=== PATIENT | female | born 1980 | race Caucasian/White ===

== ENCOUNTER 2024-07-13 09:42 | Outpatient (CLI) | payer BC, SELFPAY ==
[2024-07-13 10:21] LABS: Basophils # 0.1 K/mm3 (0-0.2); Basophils % 1.1 % (0.1-2.0); Eosinophils # 0.4 Kmm3 (0.0-0.4); Eosinophils % 4.3 % (0.1-12.0); Hemoglobin 13.2 g/dL (12.2-16.2); Lymphocytes # 1.7 K/mm3 (0.7-4.5); Lymphocytes % 20.5 % (10-50); Mean Corpuscular Hemoglobin 29.8 pg (27.0-31.2); Mean Corpuscular Volume 90.3 fl (81-99); Mean Platelet Volume 9.9 fl (7.4-10.4); Monocytes # 0.5 K/mm3 (0.1-1.0); Monocytes % 6.3 % (1.7-9.3); Neutrophils # 5.5 K/mm3 (1.8-7.8); Neutrophils % 67.7 % (37.0-80.0); Nucleated Red Blood Cells # 0 10^3/uL; Nucleated Red Blood Cells % 0 %; Platelet Count 321 K/mm3 (142-424); Red Blood Count 4.43 M/mm3 (4.20-5.40); Red Cell Distribution Width-SD 43.1 fL; White Blood Count 8.1 K/mm3 (4.8-10.8)
[2024-07-13 10:44] LABS: Erythrocyte Sedimentation Rate 13 mm/hr (0-20)
[2024-07-13 10:47] LABS: Alanine Aminotransferase 35 U/L (12-78); Albumin Level 4.3 g/dl (3.5-5.0); Albumin/Globulin Ratio 1.5 (1.1-1.8); Alkaline Phosphatase 51 U/L (38-126); Anion Gap 9.3 mEq/L (5-15); Aspartate Amino Transferase 30 U/L (14-36); Bilirubin,Total 0.4 mg/dl (0.2-1.3); Blood Urea Nitrogen 15 mg/dl (7-17); Calcium 9.3 mg/dl (8.4-10.2); Carbon Dioxide 28 mmol/L (22.0-30.0); Chloride 105 mmol/L (98-107); Estimated Glomerular Filt Rate 90 ml/min (>60); GFR (African American) 109 ML/MIN (>60); Globulin 2.8 g/dL (1.3-3.2); Glucose 91 mg/dl (74-100); Potassium 4.3 mmoL/L (3.5-5.1); Sodium 138 mmol/L (136-145); Total Protein,Serum 7.1 g/dl (6.3-8.2)
[2024-07-13 10:52] LABS: C-Reactive Protein 0.4 mg/L (0-4)
[2024-07-13 11:09] LABS: 25-OH Vitamin D, Total 74.4 ng/mL (30-100)
[2024-07-13 11:38] LABS: Vitamin B12 893 pg/mL (239-931)
[2024-07-13 12:57] LABS: Iron 116 ug/dL (37-170)
[2024-07-13 13:09] LABS: Total Iron Binding Capacity 288 ug/dL (265-497)
[2024-07-13 15:38] LABS: Ferritin 54.1 ng/ml (6.24-137)
== END 2024-07-13 23:59 | disposition home or self-care (01) ==
LOC: LAB 09:44
PROVIDERS: PCP Internal Medicine; Visit Provider Nurse Practitioner Family
DX: K50.90 Crohn's disease, unspecified, without complications (principal)
CPT/HCPCS: 36415; 80053; 82306; 82607; 82728; 83540; 83550; 85025; 85651; 86140

== ENCOUNTER 2024-09-16 07:03 | Outpatient (CLI) | payer BC, SELFPAY ==
--- OUTSIDE RECORDS SUMMARY | 2024-09-16 07:07 | XMS_ITS | Patient Health Record ---
Author Organization [facility] Group Address [address] [facility] [address] [place] [address] Care Team Providers Care Guideman Name Role Phone Teetee Mayes Unavailable [phone] Reason For Referral No Information Social History Social History Additional Details Category Social Info Options Details Miscellaneous: Sexually active: SEXUAL AC TIV: Current Problems Problem Type SNOMED Code ICD Code Onset Dates Problem Status W/U Status Risk Notes Problem Surveillance of intrauterine device contraception (692027803) Checking of intrauterine device (Z30.431) 020 Active confirmed Encounter for surveillance of intrauterine contraceptive device Problem Urine test negative (435516709) Encounter for test with result negative (Z32.02) 021 Active confirmed Urine test negative Problem Pelvic and perineal pain (124597099) Abdominal pain, suprapubic (R10.2) 020 Active confirmed Pelvic pain Problem Gynecological examination normal (12800568525547 4) Cervical smear, as part of routine gynecological examination (Z01.419) 021 Active confirmed Annual without abnormal findings Problem Insertion of intrauterine contraceptive device (13352552) Encounter for initial insertion of intrauterine contraceptive device (Z30.430) 021 Active confirmed Encounter for insertion of intrauterine contraceptive device Plan Of Treatment No Information Medical (General) History Medical History History ICD Code Anxiety Asthma Crohn's disease Hyptension IBS UTI BASAL cell Endometriosis MENSTR FLOW: Light VITAMIN D CAPSULE PROBIOTIC CAPSULE MIRENA (52 MG) 20 MCG/24HR INTRAUTERINE INTRAUTERINE DEVICE, IU DIOVAN HCT 80-12.5 MG ORAL TABLET, ORAL SINGULAIR TABLET ASACOL HD 800 MG ORAL TABLET DELAYED REL EASE, ORAL Surgical History Surgery Date(Month/Year) Tonsillectomy Dx Lap w/ uterine suspension - 2008 Colon resection x2
--- OUTSIDE RECORDS SUMMARY | 2024-09-16 07:07 | XMS_ITS | Data Portability ---
Author Organization LAYLA - Yodit abraham, CHRISS IBAPAH CLOSED Address [address] [place] [address] Care Team Providers Care Casino Runner Name Role Phone ALEXX DENNY Primary Care Provider [phone] ASHLEY VIRK Hospitality Ambassador Assessment Encounter Date Assessment Date Assessment LastModified by Organization Details LastModified Time 06/21/2024 06/21/2024 UUI is well-controll ed on solifenacin. Continue this. She has had some worsening of stress urinary incontinence. We will trial pelvic floor physical therapy. Patient would like to do this at [facility] in [place] given the location of her job we will follow-up in 3 months Will send her urine for micro and culture today and call with results [email or web address] Not available 06/23/2024 11:55:56 Plan of Treatment Reminders Order Date Submit Date Provider Last Modified By Organization Details Last Modified Time Details Appointments RECHECK 2024 11:00A M AME LOO PA-C Not available Not available Not available SINGLE PROB DAK 2024 03:40P M ARIN MATUTE MD Not available Not available Not available Lab urinalysi s panel, auto 2024 025 [email or web address] [facility], [address], [address], [place], [address], 06/21/2024 09:27:36 urinalysi s panel, auto 2023 024 [email or web address] [facility], [address], [address], [place], [address], 06/23/2023 10:55:54 Referral pelvic floor therapy referral 2024 025 [email or web address] [facility], [address], [address], [place], [address], 08/16/2024 08:37:15 Procedures None recorded. Surgeries None recorded. Imaging None recorded. Medication Orders solifenac in 10 mg tablet 2024 025 [facility], [address], [place], [address], 06/21/2024 09:41:41 Aldara 5 % topical cream packet 2024 025 [facility], [address], [place], [address], 05/18/2024 16:18:52 Kenalog 10 mg/mL suspensio n for injection 2023 024 [email or web address] [facility], [address], [place], [address], 12/24/2023 11:24:04 tretinoin 0.05 % topical cream 2023 024 [facility], [address], [place], [address], 12/24/2023 13:27:21 solifenac in 10 mg tablet 2023 024 [facility], [address], [place], [address], 06/23/2023 11:04:55 Patient TargetsNo targets recorded. Patient Instructions Encounter Date Encounter Id Patient Instructions Last Modified By Organization Details Last Modified Time 06/23/2023 [id number] See notes above and in HPI f/u in approx 1 year for recheck, sooner if needed Pt understands and agrees with care plan. No further questions or concerns at this time Not available 06/23/2023 10:59:23 06/21/2024 [id number] eating healthy foods: care instructions Not available 06/21/2024 09:27:36 See notes above and in HPI Follow-up in 3 months for recheck with PVR Return sooner if needed Pt understands and agrees with care plan. No further questions or concerns at this time [email or web address] Not available 06/23/2024 11:56:07 Reason for Referral Pelvic Floor Therapy Referra l for Female stress incontinence Referring Physician: Ame Loo, Urology, Encounter Date: 06/21/2024 Results Created Date Observation Date Name Description Value Unit Range Abnormal Flag Note LastModifiedBy Organization Detail LastModifiedTime 06/23/19 24 06/23/2023 URINE MICRO SCOPI C mucus, urine Trace /lpf normal Not Available [facility] [address] [place] [address], [phone], 06/23/2023 20:14:50 06/23/19 24 06/23/2023 URINE MICRO SCOPI C WBC, urine Rare 0-5/hp f normal Not Available [facility] [address] [place] [address], [address], 06/23/2023 20:14:50 06/23/19 24 06/23/2023 URINE MICRO SCOPI C RBC, urine Rare 0-2/hp f normal Not Available [facility] [address] [place] [address], [address], 06/23/2023 20:14:50 06/23/19 24 06/23/2023 URINE MICRO SCOPI C squamous epi. cells 0-5 0-5/hp f normal Not Available [facility] [address] [place] [address], [address], 06/23/2023 20:14:50 06/23/19 24 06/23/2023 URINE MICRO SCOPI C bacteria 1+ /hpf abnormal Not Available [facility] [address] [place] [address], [phone], 06/23/2023 20:14:50 06/23/19 24 06/25/2023 URINE CULTU RE urine culture No signif icant growth . Not Available [facility] [address] [place], [address], 06/25/2023 12:20:12 06/23/19 24 06/23/2023 urina lysis panel , auto Unknown Analyte Clean Catch Not Available [facility] With [facility] [address], [place], [address], 06/23/2023 10:46:24 06/23/19 24 06/23/2023 urina lysis panel , auto Unknown Analyte Yellow Not Available [facility] [address], [place], [address], 06/23/2023 10:46:24 06/23/19 24 06/23/2023 urina lysis panel , auto Unknown Analyte Clear Not Available [facility] [address], [place], [address], 06/23/2023 10:46:24 06/23/19 24 06/23/2023 urina lysis panel , auto Unknown Analyte 1.005 Not Available [facility] [address], [place], [address], 06/23/2023 10:46:24 06/23/19 24 06/23/2023 urina lysis panel , auto Unknown Analyte 1.003- 1.035 Not Available [facility] [address], [place], [address], 06/23/2023 10:46:24 06/23/19 24 06/23/2023 urina lysis panel , auto Unknown Analyte 7.0 Not Available [facility] [address], [place], [address], 06/23/2023 10:46:24 06/23/19 24 06/23/2023 urina lysis panel , auto Unknown Analyte 5.0-8. 0 Not Available Pending sale to [facility] [facility] [address], [place], [address], 06/23/2023 10:46:24 06/23/19 24 06/23/2023 urina lysis panel , auto Unknown Analyte 25 Andrews/ul Trace Not Available [facility] [address], [place], [address], 06/23/2023 10:46:24 06/23/19 24 06/23/2023 urina lysis panel , auto Unknown Analyte Negati ve Not Available Pending sale to [facility] [facility] [address], [place], [address], 06/23/2023 10:46:24 06/23/19 24 06/23/2023 urina lysis panel , auto Unknown Analyte Negati ve Not Available Pending sale to [facility] [facility] [address], [place], [address], 06/23/2023 10:46:24 06/23/19 24 06/23/2023 urina lysis panel , auto Unknown Analyte Negati ve Not Available Pending sale to [facility] [facility] [address], [place], [address], 06/23/2023 10:46:24 06/23/19 24 06/23/2023 urina lysis panel , auto Unknown Analyte Negati ve Not Available Pending sale to [facility] [facility] [address], [place], [address], 06/23/2023 10:46:24 06/23/19 24 06/23/2023 urina lysis panel , auto Unknown Analyte Negati ve Not Available [facility] [address], [place], [address], 06/23/2023 10:46:24 06/23/19 24 06/23/2023 urina lysis panel , auto Unknown Analyte Normal Not Available [facility] With [place] [address], [place], [address], 06/23/2023 10:46:24 06/23/19 24 06/23/2023 urina lysis panel , auto Unknown Analyte Normal Not Available [facility] With [place] [address], [place], [address], 06/23/2023 10:46:24 06/23/19 24 06/23/2023 urina lysis panel , auto Unknown Analyte Negati ve Not Available [facility] [address], [place], [address], 06/23/2023 10:46:24 06/23/19 24 06/23/2023 urina lysis panel , auto Unknown Analyte Negati ve Not Available [facility] [address], [place], [address], 06/23/2023 10:46:24 06/23/19 24 06/23/2023 urina lysis panel , auto Unknown Analyte Normal Not Available [facility] [place] [facility] [address], [place], [address], 06/23/2023 10:46:24 06/23/19 24 06/23/2023 urina lysis panel , auto Unknown Analyte Normal 1 mg/dl Not Available Pending sale to [facility] [facility] [address], [place], [address], 06/23/2023 10:46:24 06/23/19 24 06/23/2023 urina lysis panel , auto Unknown Analyte Negati ve Not Available [facility] [address], [place], [address], 06/23/2023 10:46:24 06/23/19 24 06/23/2023 urina lysis panel , auto Unknown Analyte Negati ve Not Available [facility] [address], [place], [address], 06/23/2023 10:46:24 06/23/19 24 06/23/2023 urina lysis panel , auto Unknown Analyte 50 Gm/ul Not Available [facility] [address], [place], [address], 06/23/2023 10:46:24 06/23/19 24 06/23/2023 urina lysis panel , auto Unknown Analyte Negati ve Not Available Pending sale to [facility] [facility] [address], [place], [address], 06/23/2023 10:46:24 06/22/19 25 06/21/2024 URINE MICRO SCOPI C WBC, urine 0-5 0-5/hp f normal Not Available [facility] [address] [place] [address], [address], 06/21/2024 15:20:44 06/22/19 25 06/21/2024 URINE MICRO SCOPI C RBC, urine 0-2 0-2/hp f normal Not Available [facility] [address] [place] [address], [address], 06/21/2024 15:20:44 06/22/19 25 06/21/2024 URINE MICRO SCOPI C squamous epi. cells 0-5 0-5/hp f normal Not Available [facility] [address] [place] [address], [address], 06/21/2024 15:20:44 06/22/19 25 06/21/2024 URINE MICRO SCOPI C bacteria 2+ /hpf none seen abnormal URINE CULTU RE IN PROGR ESS. Not Available [facility] [address] [place] [address], [address], 06/21/2024 15:20:44 06/22/19 25 06/23/2024 URINE CULTU RE urine culture No signif icant growth . Not Available [facility] [address] [place] [address], [address], 06/23/2024 09:07:37 06/22/19 25 06/21/2024 urina lysis panel , auto Unknown Analyte Clean Catch Not Available Pending sale to [facility] [facility] [address], [place], [address], 06/21/2024 09:17:05 06/22/19 25 06/21/2024 urina lysis panel , auto Unknown Analyte Yellow Not Available [facility] [place] [facility] [address], [place], [address], 06/21/2024 09:17:05 04/07/20 25 06/21/2024 urina lysis panel , auto Unknown Analyte Clear Not Available [facility] [place] [facility] [address], [place], [address], 06/21/2024 09:17:05 06/22/19 25 06/21/2024 urina lysis panel , auto Unknown Analyte 1.005 Not Available [facility] [address], [place], [address], 06/21/2024 09:17:05 06/22/1906/21/2024 urina lysis panel , auto Unknown Analyte 5.0 Not Available [facility] [address], [place], [address], 06/21/2024 09:17:05 06/22/19 25 06/21/2024 urina lysis panel , auto Unknown Analyte Not Available [facility] [address], [place], [address], 06/21/2024 09:17:05 06/22/19 25 06/21/2024 urina lysis panel , auto Unknown Analyte Negati ve Not Available [facility] [address], [place], [address], 06/21/2024 09:17:05 06/22/19 25 06/21/2024 urina lysis panel , auto Unknown Analyte Not Available [facility] [facility] [address], [place], [address], 06/21/2024 09:17:05 06/22/19 25 06/21/2024 urina lysis panel , auto Unknown Analyte Negati ve Not Available [facility] [address], [place], [address], 06/21/2024 09:17:05 06/22/19 25 06/21/2024 urina lysis panel , auto Unknown Analyte Negati ve Not Available [facility] [address], [place], [address], 06/21/2024 09:17:05 06/22/19 25 06/21/2024 urina lysis panel , auto Unknown Analyte Normal Not Available [facility] [address], [place], [address], 06/21/2024 09:17:05 06/22/19 25 06/21/2024 urina lysis panel , auto Unknown Analyte Negati ve Not Available [facility] [address], [place], [address], 06/21/2024 09:17:05 06/22/19 25 06/21/2024 urina lysis panel , auto Unknown Analyte Normal Not Available [facility] [address], [place], [address], 06/21/2024 09:17:05 06/22/19 25 06/21/2024 urina lysis panel , auto Unknown Analyte Negati ve Not Available [facility] [address], [place], [address], 06/21/2024 09:17:05 06/22/19 25 06/21/2024 urina lysis panel , auto Unknown Analyte 50 Gm/uL Not Available [facility] [address], [place], [address], 06/21/2024 09:17:05 08/04/19 25 06/21/2024 MRI, lumba r spine , w/o contr ast No observ ation record ed. [email or web address] [facility] [address] [facility] [address], [place], [address], 08/03/2024 14:04:16 08/04/19 25 06/21/2024 MRI, lumba r spine , w/o contr ast No observ ation record ed. [email or web address] [facility] [address], [place], [address], 08/03/2024 14:04:35 Result Notes None recorded. Problems Name Problem SNOMED Code Status Onset Date Resolution Date Notes Provider Name and Address Organization Details Recorded Time Urge incontinence of urine 28786381 Active 2022 MICHELLE CASILLAS JR, MD [address] [place], [address], [facility] 3 07:46:28 Female stress incontinence 62263082 Active 2024 AME LOO PA-C [address] [place], [address], [facility] 5 11:56:07 Problem Notes None recorded. Procedures Surgical History Date Name Laterality Status Provider Name and Address Organization Details Recorded Time 06/22/19 25 Post Void Residual; Ultrasound completed Lexi Zhang [facility] 06/21/2024 09:15:43 05/11/19 25 Destruction Premalignant Lesion(s) completed Nan Posadas [facility] 05/11/2024 15:49:54 12/24/19 24 DAK - Intralesional Injection completed Delia Ocampo [facility] 12/24/2023 10:10:21 06/23/19 24 Post Void Residual; Ultrasound completed AME LOO PA-C [address] [place], [address], [facility] 06/23/2023 10:49:18 06/04/19 24 Suture/Staple removal completed Nan Posadas [facility] 06/04/2023 07:31:45 05/21/19 24 DAK - Lesion Excision, [place]; trunk,arms,legs completed Nan Posadas [facility] 05/21/2023 15:59:30 05/05/19 24 Blade Biopsy w/ ED&C completed Cherie Tiffany [facility] 05/05/2023 16:01:44 05/05/19 24 Destruction Premalignant Lesion(s) completed Cherie Tiffany [facility] 05/05/2023 15:40:47 02/06/20 23 Suture/Staple removal completed Beckie Spring [facility] 02/05/2023 15:40:56 section completed Destini Aquino [facility] 09/10/2022 07:42:56 Imaging Results None recorded. Procedure Notes None recorded. Medical Equipment None Reported. Allergies No known drug allergies Medications Name Sig Start Date Stop Date Status Note LastModified by Organization Details LastModified Time doxycycli ne hyclate 100 mg capsule Take 1 capsule twice a day by oral route with meals for 5 days. 06/22 completed Not Available Not Available Not Available tretinoin 0.05 % topical cream Apply by topical route for 30 days. 2023 active Not Available Not Available Not Avai lable tramadol 50 mg tablet Take 1 tablet every 6 hours by oral route with meals. 06/22 completed Not Available Not Available Not Available Kenalog 10 mg/mL suspensio n for injection Administ ered K5 today in office 2023 active Not Available Not Available Not Avai lable Aldara 5 % topical cream packet APPLY TO THE AFFECTED AREA(S) BY TOPICAL ROUTE 4 TIMES PER WEEK for 6-8 weeks 2024 active Not Available Not Available Not Avai lable solifenac in 10 mg tablet Take 1 tablet every day by oral route. 2024 active Not Available Not Available Not Avai lable magnesium active Not Available Not Jody ilable Not Available valsartan active Not Available Not Jody ilable Not Available hydroxyzi ne HCl prn active Not Available Not Available Not Available Vitamin D active Medicati on Descript ion: ergocalc iferol; Route:or al; refills: 0 Not Available Not Available Not Available Singulair Daily active Frequenc y: daily;Me dication Descript ion: monteluk ast; Dosage:1 ; Route:or al; refills: 5; Quantity :30 Not Available Not Available Not Available niacinami de active Not Available Not Available Not Available Ambien 09/10 completed Medicati on Descript ion: zolpidem ; Route:or al; refills: 0 Not Available Not Available Not Available Zyrtec active Not Available Not Availa ble Not Available Cymbalta 09/09 completed Medicati on Descript ion: duloxeti ne; Route:or al; refills: 0 Not Available Not Available Not Available solifenac in active Not Available Not Available Not Available Asacol HD 800 mg tablet,de layed release Two times a day 2015 active Duration : 3 days;Ins truction s: TAKE TWO TABLETS BY MOUTH TWICE A DAY;Freq uency: bid;Medi cation Descript ion: mesalami ne; Dosage:2 ; Route:or al; refills: 10; Quantity :120 delayed release tablet Not Available Not Available Not Available Creon active Not Available Not Availa ble Not Available Viibryd 40 mg tablet Take 1 tablet every day by oral route. active Not Available Not Available No t Available vilazodon e active Not Available Not Available Not Available Gemtesa 75 mg tablet Take by oral route for 90 days. 06/22 completed Not Available Not Available Not Available Vitals Date Recorded Body height Body mass index (BMI) Body weight Provider Name and Address Organization Details Last Updated DateTime 06/21/2024 162.56 cm 27.6 kg/m2 33347.37 g Lexi Zhang [facility] 06/21/2024 09:12:54 Date Recorded Body height Body mass index (BMI) Body weight Provider Name and Address Organization Details Last Updated DateTime 06/23/2023 162.56 cm 28 kg/m2 35118.56 g Brittanie Salas [facility] 06/23/2023 10:45:46 Social History Question Answer Notes LastModified by Organizat ion Details LastModified Time Tobacco Smoking Status Never Smoker Brittanie Salas [facility] 09/09/2022 13:44:48 What Was The Date Of Your Most Recent Tobacco Screening? 06/21/2024 [email or web address] Information not available 06/21/2024 What Is Your Relationship Status? [email or web address] Information not available 09/09/2022 Sex: Female Functional Status Question Answer Note LastModified by Organizat ion Details LastModified Time Do you use any illicit or recreational drugs? No [email or web address] Information not available 09/09/2022 What is your level of alcohol consumption? None [email or web address] Information not available 09/09/2022 Are you currently employed? Yes Information not available 09/09/2022 What is your occupation? teacher [email or web address] Information not available 09/09/2022 Mental Status None recorded. Family History Relationship Description Onset Age of this Age Resolved Age Notes LastModified by Organization Details LastModified Time Unspecified Relation Family history of malignant neoplasm [email or web address] Not available 2022 07:42:37 Unspecified Relation Diabetes mellitus [email or web address] Not available 2022 07:42:41 Medical History Condition Response Coronary Artery Disease N Other N Gout N Kidney Cyst N Kidney Stones N Enlarged Prostate N Heart Arrhythmia N Emphysema N Head Trauma/Injury N Erectile Dysfunction N Sexually Transmitted Disease N Depression N Pneumonia N Incontinence Y Prostate Problems N Cancer Prostate N Paralysis N Anxiety Disorder Y Hemorrhoids Y Obesity N Arthritis N Infertility N Acid Reflux (GERD) N Hematuria N Cancer N Stroke N Neck Injury N Neurologic Disorder N Previous Radiation Therapy? N Kidney Disease N Heart Conditions N Kidney or Bladder Problems N Constipation Y Urinary Problems N Brain Injury N Ulcers N Prostate Hypertrophy N Low Testosterone N Tuberculosis N Previous Chemotherapy? N AIDS/HIV N BPH N Urinary Tract Infection N Asthma Y Cardiac Disease N Thyroid Disorder N Hepatitis N PCOS N Colon Cancer N Hernia N Colon/Rectal Disorders N Ostomy N Glaucoma N Pacemaker N Anesthesia Complications N Genitourinary Disease N Radiation Therapy N Chronic Kidney Disease N Bladder or Kidney Problems N Back Injury N High Cholesterol N High PSA N Nervous System Disorder N Liver Disease N Organ Transplant N Dialysis N Allergies/Hayfever Y False Teeth N Chronic Obstructive Pulmonary Disease N Parkinson's Disease N Chemotherapy N Anemia Y Transplant N Back Pain Y Chest Pain N Multiple Sclerosis N Proteinuria N Heart Attack ([place]) N Mental Illness N Ovarian Cancer N Diabetes N Seizures/Epilepsy N Genitourinary problem(s) N Congestive Heart Failure (CHF) N Kidney Failure N Sleep Apnea N Bronchitis Y Heart Disease N Hypertension Y Gynecological History Statement/Question Response Female Hormone Problem Y # of Pregnancies 2 Abnormal Periods Y # of Births 2 Could you be now? N Current Control Method iud Uterus/Ovaries Problem N Obstetrics History GPAL:G 0 P 0 0 0 0 Past Encounters Encounter ID Performer Location Encounter Start Date Encounter Closed Date Diagnosis/Indication Diagnosis SNOMED-CT Code Diagnosis ICD10 Code Diagnosis Note [id number] MICHELLE CASILLAS JR, MD [facility] [address] [facility] [address] [place] [address] 09/09/2022 13:30:07 09/12/2022 08:25:50 Urge incontinence of urine [id number] N39.41 Mixed urin eduardo incontinence [id number] N39.46 [id number] JOAN[place] [address] 01/30/2023 07:35:01 02/15/2023 03:48:23 [id number] [place] [address] 02/05/2023 08:38:42 02/15/2023 04:23:59 Surgical scar [id number] L90.5 History of malignant neoplasm of skin 439622070 Z85.828 Removal of frankie 53001 001 Z48.02 Removal of bolster [id number] JOANNE FLORENCE MD [address] [address] 03/07/2023 12:55:21 03/16/2023 04:07:27 Postoperative visit [id number] Z09 Surgical scar 275400574 L90.5 History of malignant neoplasm of skin 193944037 Z85.828 [id number] ARIN MATUTE MD [place] [address] 05/05/2023 15:14:47 05/05/2023 15:54:05 History of malignant neoplasm of skin 886777403 Z85.828 L90.5 Well healed scar.Fup with any change or concern Multiple b enign melanocytic nevi 255135771 D22.5 - Benign lesions seen on exam today- SPF 30 or higher broad-spec trum sunscreen recommende d with re-applica tion every 2 hours- Discussed sun protection measures, including wide-brimm ed hat, sun-protec tive clothing, and avoidance of sun during peak hours of 10am-4pm- Avoid tanning beds as these can increase the chances of all 3 types of skin cancer- Instructed to monitor for changes and to call us for appointmen t with any changing or worrisome lesions Seborrheic keratosis 394 085269 L82.1 - Benign overgrowth s of skin - Hereditary Senile angioma 8884857 I 78.1 - Benign blood vessel growths - Hereditary Solar lentigo 03236382 L 81.4 - Benign brown spots - Sun-induce d Neoplasm o f uncertain behavior of skin 26763010 D48.5 Will fup with Bx results.Wo und care instructio n given.Fup with change or concern Actinic keratosis [address] today. No wound care givenFup with change or concern [id number] ARIN MATUTE MD [address] [address] 05/21/2023 15:13:43 05/21/2023 16:07:24 Basal cell carcinoma of back 790382027 C44.519 Wound care discussedF up with change or concerns [id number] ARIN MATUTE MD [address] [address] 06/04/2023 15:25:50 06/09/2023 16:18:10 History of malignant neoplasm of skin 315743506 Z85.828 L90.5 - No evidence of recurrence today - Call with any worrisome lesions or if treated lesions return - Return at regular intervals for skin exam as recommende dFup with change or concerns [id number] FAINA MENEZES [facility] [address] [facility] [address] [place] [address] 06/23/2023 10:41:20 06/24/2023 07:46:09 Urge incontinence of urine 39737418 N39.41 doing very well on solifenaci ncontinue solifenaci n 10 mg dailyf/u in 1 year for recheck Microscopic hematuria 19 9381779 R31.29 will send urine for micro + culture today and call with resultsif clinically significan t microhemat uria plan for further workup [id number] ASHLEY VIRK PA-C [address] [address] 12/24/2023 09:49:40 12/25/2023 16:27:00 Acne vulgaris 07559703 L70.0 The nature of the diagnosis was explained. Acne is due to genetics and hormones.D iscussed avoiding factors that may exacerbate the condition. Treatment options and expectatio ns discussed. Recommend regular use of noncomedog enic moisturize r, as many prescripti on acne treatments lead to dry skin.Pt encouraged to call with any concerns or questions. Hypertrophic scar 532076 06 L91.0 R52 The nature of the diagnosis was explained. Scar appears well-heale d, slightly hypertroph ic. No evidence of recurrent BCC. Reassuranc e given.Pt had excision on BCC on L mid back on 05/21/2023 with suture removal on 06/04/2023. Pt complains of pain at the site of the excision (itching, burning, shooting pain). Suspect symptoms from scar tissue and nerve pain post-excis ion.Tx'd with K5 ILK todayConti nue massaging silicone scar gel on areaContin ue to monitor area and call with concerns/c clovis. [id number] ARIN MATUTE MD [address] [address] 05/11/2024 15:33:45 05/11/2024 16:15:31 History of malignant neoplasm of skin 838605401 Z85.828 L90.5 - No evidence of recurrence today - Call with any worrisome lesions or if treated lesions return - Return at regular intervals for skin exam as recommende d Multiple b enign melanocytic nevi 879755080 D22.5 - Benign lesions seen on exam today- SPF 30 or higher broad-spec trum sunscreen recommende d with re-applica tion every 2 hours- Discussed sun protection measures, including wide-brimm ed hat, sun-protec tive clothing, and avoidance of sun during peak hours of 10am-4pm- Instructed to monitor for changes and to call us for appointmen t with any changing or worrisome lesions Seborrheic keratosis 394 273215 L82.1 - Benign overgrowth s of skin - Hereditary Senile angioma 3129803 I 78.1 - Benign blood vessel growths - Hereditary Solar lentigo 88021764 L 81.4 - Benign brown spots - Sun-induce d Actinic keratosis 510054 007 L57.0 vs superficia l BCCLN2 today. No wound care givenRecom mend for any areas treated today that do not go away, apply topical AldaraRx Aldara 4 days on 3 days off for 6-8 weeks, SE reviewed. Expect redness, crusting, sore, etcFup with change or concern [id number] AME LUNA LOO PA-C [facility] [address],[place] [address] [place] [address] 06/21/2024 09:06:14 06/21/2024 09:31:06 Urge incontinence of urine 92232186 N39.41 Body mass index 25-29 - overweight 903260688 Z68.27 Female str ess incontinence 90429475 N39.3 Health Concerns Section Related Observation LastModified by Organization Detai ls LastModified Time None Recorded Concern Status LastModified by Organization Details LastModified Time None Recorded Advance Directives Directive None Recorded Payers Insurance Date Sequence Insurance Name Policy Number Policy [facility] Covered Member ID [employer] Member ID Guarantor Name 08/08/2024 1 [place] [id number] 2 Shaggy Arzate [id number] Johanny Arzate Notes Date Note Type Note Provider Name and Address Organization Details Recorded Time 06/04/2023 text/html Excision on L Mi d Back-BCC on 05/21/2023. Here for suture removal. ARIN MATUTE MD [address] [place], [address], [facility] 07/16/2023 07:14:40 06/23/2023 text/html Ms. Arzate is a 42 y/o F with PMH HTN who presents today for f/u of UUI and EDEN. ON RECORD REVIEW OF APPT 09/09/[address] Casillas Patient is in today secondary to frequent and urgent urination. She has had significant increase in urgency sensation over the past 6 months. She estimates she has urgency incontinence approximately 3 times daily. She also has noticed increased frequency of urination. She denies dysuria. She also has mild stress incontinence which has been longstanding but this has not worsened nor is it a bother to her. Urgency urinary incontinence symptoms are much greater and bothersome. She denies a history of recurrent UTI. She denies hematuria. She denies dysuria. She has never had bladder surgery. She did undergo uterine suspension in the past. started gemtesaGemtesa was denied. Needs to fail 3 prior medicationswitched to solifenacin 10 mg dailyPt called on 11/11/22 and stated medication was working. TODAY - 06/23/23currently on solifenacinhas been working very wellmother recently and she went 4-5 days without solifenacin and could tell a big difference off the medication Frequency - usually able to make it to her breaks, every 2.5-3 hoursUrgency - not an issueUUI - none on solifenacinSUI - only if with a very heavy coughnocturia - 0pads/depends - 0 AME LUNA LOO PA-C [address] [place], [address], [facility] 06/23/2023 10:59:57 12/24/2023 text/html I am here to hav e a spot checked. Location: L shoulderDuration: excision on 4Reports: Had stitches and it still hurts - feels like a stich might still be in there or there might be a new spot next to it Hx of Mohs 01/30/2023 for BCC- R helixHx BCC- R upper arm,R lateral thigh, L medial thigh, and more ASHLEY VIRK PA-C [address] [place], [address], [facility] 12/24/2023 11:25:15 05/11/2024 text/html AnnualHx of NMSC -L mid back, R helix, R upper arm , R lateral thigh, and moreSpots on upper L thigh & lower R calf ARIN MATUTE MD [address] [place], [address], [facility] 05/11/2024 15:58:26 06/21/2024 text/html Ms. Arzate is a 43 y/o F with PMH HTN who presents today for f/u of UUI and EDEN. currently on solifenacinhad been working very well Frequency - doing timed voiding approx every 2 hoursUrgency - consistent urgeUUI - if she has to wait too long, may have episodes every other daySUI - slightly worse than prior, just a dribblenocturia - 1xpads/depends - 0 will feel a spasm and leak slightly sometimes has Crohn's some constipation which has not worsened recently. looser stools recently AME LUNA LOO PA-C [address] [place], [address], [facility] 06/23/2024 11:56:26 OBGyn Episode No OBEpisode recorded.
--- OUTSIDE RECORDS SUMMARY | 2024-09-16 07:07 | XMS_ITS ---
Author Organization Unknown Medications Medication Instructions Effective Dates (start - stop) Status hydrochlorothiazide 12.5 MG / valsartan 80 MG Oral Tablet 2997-34-59H03:00:00.000+00 :00 - Completed hydrochlorothiazide 12.5 MG / valsartan 80 MG Oral Tablet 3259-05-31C58:00:00.000+00 :00 - Completed nystatin 530126 UNT/ML / triamcinolone acetonide 1 MG/ML Topical Cream 9690-68-30L97:00:00.000+00 :00 - Completed hydrochlorothiazide 12.5 MG / valsartan 80 MG Oral Tablet 3647-32-39V76:00:00.000+00 :00 - Completed 84 HR estradiol 0.68190 MG/H R Transdermal System 6505-83-51E53:00:00.000+00 :00 - Completed mesalamine 800 MG Delayed Re lease Oral Tablet 4404-68-03M99:00:00.000+00 :00 - Completed mesalamine 800 MG Delayed Re lease Oral Tablet 4207-43-88L98:00:00.000+00 :00 - Completed mesalamine 800 MG Delayed Re lease Oral Tablet 0250-28-83C81:00:00.000+00 :00 - Completed mesalamine 800 MG Delayed Re lease Oral Tablet 9979-46-73B75:00:00.000+00 :00 - Completed mesalamine 800 MG Delayed Re lease Oral Tablet 7925-88-59J16:00:00.000+00 :00 - Completed doxycycline hyclate 100 MG O ral Capsule 8627-57-84P68:00:00.000+00 :00 - Completed mesalamine 800 MG Delayed Re lease Oral Tablet 8704-66-40R26:00:00.000+00 :00 - Completed mesalamine 800 MG Delayed Re lease Oral Tablet 2386-07-83F37:00:00.000+00 :00 - Completed doxycycline hyclate 100 MG O ral Capsule 9456-67-50A81:00:00.000+00 :00 - Completed 84 HR estradiol 0.37924 MG/H R Transdermal System 0044-40-86H19:00:00.000+00 :00 - Completed nitrofurantoin, macrocrystal s 25 MG / nitrofurantoin, monohydrate 75 MG Oral Capsule 3828-75-31X26:00:00.000+00 :00 - Completed metronidazole 7.5 MG/ML Topi tobi Cream 7859-82-95M19:00:00.000+00 :00 - Completed {21 (methylprednisolone 4 MG Oral Tablet) } Pack 5144-44-18C73:00:00.000+00 :00 - Completed duloxetine 30 MG Delayed Rel ease Oral Capsule 5642-54-23Y67:00:00.000+00 :00 - Completed - 1599-25-36H90:00 :00.000+00 :00 - Completed Patient Care team information Name Category Status Period Participants - - Proposed period not known -
[2024-09-20 09:46] LABS: Calprotectin, Fecal 62 ug/g (0-120)
== END 2024-09-16 23:59 | disposition home or self-care (01) ==
LOC: LAB 07:04
PROVIDERS: PCP Internal Medicine; Visit Provider Nurse Practitioner Family
DX: K50.90 Crohn's disease, unspecified, without complications (principal)
CPT/HCPCS: 83993